=== PATIENT | male | born 1995 | race Caucasian/White ===

== ENCOUNTER 2025-02-16 23:48 | Emergency (ER) | payer SELFPAY ==
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
[2025-02-16 23:55] VITALS: BP 141/86; PULSE 90; RESP 18; TEMP 37.6; O2SAT 99; BMI 25.0
--- NOTE | 2025-02-17 00:20 | ED_ITS ---
HPI - Wound/Laceration General Time Seen by Provider: 00:20 Date Seen: 02/17/25 Chief Complaint: Laceration/Wound Stated Complaint: left knee injury Time Seen by Provider: 02/17/25 00:20 Source: patient and RN notes reviewed Mode of arrival: ambulatory Limitations: no limitations History of Present Illness HPI narrative: This 30-year-old male is coming in with concern of an infected wound. He has a laceration on his left knee that is healing by secondary intention. He did a visit with a friend who is a physician and he looked at the wound in did think it was infected, called me in doxycycline but it is after hours and he could not get the prescription. He is feeling sweaty, feeling low-grade fevers and increased pain along the knee. He is worried about this getting worse. He states he had septic shock last year. The events surrounding the septic shock were from testicular torsion that he did not go in for until late. His initial wound was evaluated on January 30, wound was 16 hours old when he went in. Patient was given 10 tablets of oxycodone at that visit and 7 days of Keflex at 500 mg 4 times a day. He did have an x-ray of his knee, did end up having a CT of this left knee without acute findings. He did get a Td updated. Related Data Allergies Allergy/AdvReac Type Severity Reaction Status Date / Time erythromycin base Allergy Severe Seizures Verified 02/16/25 23:59 Review of Systems Narrative: As per HPI. [facility] Medical History (Updated 02/17/25 @ 00:34 by Milly English MD) Testicular torsion ?N44.00 - Torsion of testis, unspecified (ICD-10) Social History Smoking Status: Never smoker Second hand tobacco smoke exposure: No How often do you have a drink containing alcohol: never AUDIT-C Alcohol total score: 0 Non-prescribed substance use: marijuana (any form) Exam Const: Vital Signs, click to edit/add: Vital Signs - 24 hr 02/16/25 23:55 Temperature 99.6 F Pulse Rate [Right Pulse Oximeter] 90 Respiratory Rate 18 Blood Pressure [Le ft Upper Arm] 141/86 H Pulse Oximetry 99 Oxygen Delivery Me thod Room Air Patient is alert, interactive, no apparent distress. Breathing easily on room air, speech normal. Lungs clear anteriorly. CV regular rate and rhythm, no murmur, normal S1-S2, no S3-S4. He has bandages over his left knee, this was removed. There is generalized soft tissue swelling but no effusion noted of the knee joint. He has a horizontally situated laceration that is through the skin, there is some mild warmth around the area, very mild pinkish change just right around the wound, no drainage noted. Skin overall feels generally warmer and there is some soft tissue induration noted but no fluctuance. Agree that there certainly could be some early infection here, temperature is noted to be 99.6. Documenting provider has reviewed patient's vital signs: yes Course Course ED Course: We will check baseline labs for this patient with CBC and C-reactive protein, he would prefer this. Have reviewed with him that we can get him doxycycline immediately out of [facility], do agree with him starting this now rather than waiting until morning. I did review with him that his septic shock from untreated testicular torsion really does not necessarily put him at increased risk for wound infection from this. We will still get the baseline labs so if he is worsening, there is something to compare to. Reevaluation(s) Time of Reevaluation #1: 01:40 Reevaluation #1: Reviewed with patient that his white blood count is normal, C-reactive protein normal. Labs are reassuring. Plan will be to discharge to home, he is already got his doxycycline out of [facility]. Vital Signs Vital signs: Initial Vital Signs Temperature 99.6 F 02/16/25 23:55 Temperature Source Temporal Artery Scan 02/16/25 23:55 Pulse Rate 90 02/16/25 23:55 Respiratory Rate 18 02/16/25 23:55 Blood Pressure 141/86 H 02/16/25 23:55 Blood Pressure Mean 104 02/16/25 23:55 Blood Pressure Position Sitting 02/16/25 23:55 Pulse Oximetry 99 02/16/25 23:55 Oxygen Delivery Method Room Air 02/16/25 23:55 Vital Signs Temperature 99.6 F 02/16/25 23:55 Pulse Rate 90 02/16/25 23:55 Respiratory Rate 18 02/16/25 23:55 Blood Pressure 141/86 H 02/16/25 23:55 Pulse Oximetry 99 02/16/25 23:55 Oxygen Delivery Method Room Air 02/16/25 23:55 Temperature 99.6 F 02/16/25 23:55 Pulse Rate 90 02/16/25 23:55 Respiratory Rate 18 02/16/25 23:55 Blood Pressure 141/86 H 02/16/25 23:55 Pulse Oximetry 99 02/16/25 23:55 Oxygen Delivery Method Room Air 02/16/25 23:55 Medications Administered Medications: Discontinued Medications Generic Name Dose Route Start Last Admin Trade Name Freq PRN Reason Stop Dose Admin Bacitracin Zinc 1 each 02/17/25 00:29 02/17/25 00:29 Bacitracin 0.9 Gm Packet TOPICAL 02/17/25 00:30 1 each ONCE ONE Administration MDM - Wound/Laceration Lab Data Attestation: I reviewed the patient's lab results. Labs: Lab Results 02/17/25 Range/Units 00:25 WBC 7.82 (4.50-11.00) K/uL RBC 4.23 L (4.30-5.90) m/uL Hgb 13.7 (13.5-17.5) gm/dL Hct 38.7 (37.0-53.0) % MCV 92 (80-100) fL MCH 32 (26-34) pg MCHC 35 (32-36) gm/dL RDW Coeff of Carlos 11.6 (11.5-15.5) % Plt Count 256 (140-440) K/uL Neut % (Auto) 70.7 (42.0-72.0) % Lymph % (Auto) 19.3 L (20-44) % [place]ham % (Auto) 7.4 (0.0-11.0) % Eos % (Auto) 2.0 (0.0-7.0) % Baso % (Auto) 0.5 (0.0-3.0) % Neut # (Auto) 5.52 (1.7-7.0) K/uL Lymph # (Auto) 1.50 (0.90-2.90) K/uL Ingham # (Auto) 0.60 (0.00-0.90) K/UL Eos # (Auto) 0.16 (0.00-0.50) K/uL Baso # (Auto) 0.04 (0.00-0.30) K/uL Abs Immat Gran (auto) 0.01 (0.00-0.30) K/uL Imm/Tot Granulo (auto) 0.1 % C-Reactive Protein < 0.5 L (0.5-1.0) mg/dL Discharge Plan Discharge Clinical Impression: Laceration, Infected wound Patient Disposition: Home, Self-Care Condition: Stable Instructions: Wound Infection (ED) Additional Instructions: Recommend keeping this wound clean with showering, gentle antibacterial soap use and bandaging with bacitracin. Start the doxycycline 100 mg and take twice a day for 10 days, provided from [employer]. Can use Tylenol and ibuprofen as needed for pain control. Continue to monitor this wound closely and if wound is increasingly more painful, developing more redness/swelling, fever pattern is worsening despite antibiotic use, developed purulent discharge, do recommend re- evaluation. Activity Level: Activity as Tolerated Stand Alone Forms: MyHealth Info Instructions
[2025-02-17] MEDS: BACITRACIN 0.9 GM PACKET 1 EACH TOPICAL (00:29)
[2025-02-17 00:43] LABS: Basophils Absolute Auto 0.04 K/uL (0.00-0.30); Basophils Percent Auto 0.5 % (0.0-3.0); Eosinophils Absolute Auto 0.16 K/uL (0.00-0.50); Hematocrit 38.7 % (37.0-53.0); Hemoglobin* 13.7 gm/dL (13.5-17.5); Immature Granulocytes Abs Auto 0.01 K/uL (0.00-0.30); Immature Granulocytes Pct Auto 0.1 %; Lymphocytes Percent Auto 19.3 % (20-44); Mean Corpuscular HGB Conc 35 gm/dL (32-36); Mean Corpuscular Hemoglobin 32 pg (26-34); Mean Corpuscular Volume 92 fL (80-100); Monocytes Percent Auto 7.4 % (0.0-11.0); Neutrophils Absolute Auto 5.52 K/uL (1.7-7.0); Neutrophils Percent Auto 70.7 % (42.0-72.0); Platelet Count* 256 K/uL (140-440); RDW Coefficient of Variation % 11.6 % (11.5-15.5); Red Blood Count 4.23 m/uL (4.30-5.90); White Blood Count* 7.82 K/uL (4.50-11.00)
--- OUTSIDE RECORDS SUMMARY | 2025-02-17 00:49 | XMS_ITS | Clinical Summary ---
Author Organization [facility] Address [address] [place] [id number] Care Team Providers Care Hot Knife Cutter Name Role Phone No Ref-Primary, Physician Primary Care Provider Allergies Active Allergy Reactions Criticality Noted Date Comments Erythromycin 08/13/2011 Pertussis Vaccine High 03/12/2011 Had seizure Trazodone Other (See Comments) Low 04/26/2019 Headache, nightmares, GI upset. Medications * This document contains information received from the source organization and may not represent a complete record from that organization. buPROPion (WELLBUTRIN XL) 150 MG 24 hr tabletIndicatio ns:Depression with anxiety Take 1 tablet (150 mg) by mouth daily 30 tablet 05/02/2019 Active oxyCODONE (ROXICODONE) 5 MG tablet Take 1 tablet (5 mg) by mouth every 6 hours as needed for severe pain 10 tablet 10/24/2023 Active cephALEXin (KEFLEX) 500 MG capsule Take 1 capsule (500 mg) by mouth 4 times daily for 7 days. 28 capsule 01/30/2025 02/07/20 25 Active Problems Problem Noted Date Diagnosed Date Suicidal ideations 04/25/2019 Ingestion of unknown drug, undetermined intent, sequela 09/17/2016 Acute alcoholic intoxication in alcoholism without complication 09/17/2016 Overdose 09/16/2016 Encounters Date Type Department Care Team Description 01/30/2025 1:18 PM CDT - 01/30/2025 3:07 PM CDT [facility] [address] [place] [address] Cari Guerin MD Knee laceration, left, initial encounter; Left knee pain Discharge Disposition: Home or Self Care 01/30/2025 Travel from Last 3 Months Immunizations Immunization Administration Dates Next Due TD,PF 7+ (Tenivac) 01/30/2025 Family History Medical History Relation Comments Anxiety Disorder Brother 1 Mental Illness Brother 1 Colon Cancer Father Coronary Artery Disease Father Diabetes Maternal Grandmother Anesthesia Reaction Mother Other Cancer Other Other Cancer Paternal Grandfather Relation Status Comments Brother 1 Alive Brother 2 Alive Brother 3 Alive Father Alive Maternal Grandfather Alive Maternal Grandmother Alive Mother Alive Other Paternal Grandfather Alive Paternal Grandmother Alive Sister 1 Alive Sister 2 Alive Social History Tobacco Use Types Packs/Day Years Used Date Smoking Tobacco: Never Smokeless Tobacco: Never Tobacco Cessation:Counseling Given: Yes Alcohol Use Standard Drinks/Week Comments Yes 0 (1 standard drink = 0.6 oz pur e alcohol) daily- unable to quantify Adolescent Education Answer Date Record ed Getting School Help Needed Not on file 10/24 Sex and Gender Information Value Date Recorded Sex Assigned at Not on file Legal Sex Male 5:03 AM AGING ROOM HAND Gender Identity Not on file Sexual Orientation Not on file Occupation Industry Job Start Date Job End Date unemployed Not on file Not on file Not on file Last Filed Vital Signs Vital Sign Reading Time Taken Comments Blood Pressure 160/84 01/30/2025 12:01 PM CDT Pulse 91 01/30/2025 12:01 PM CDT Temperature 36.1 C (97 F) 01/30/2025 12:01 PM CDT Respiratory Rate 16 01/30/2025 12:01 PM CDT Oxygen Saturation 99% 01/30/2025 12:01 PM CDT Inhaled Oxygen Concentration - - Weight 73.6 kg (162 lb 4.1 oz) 10/24/2023 4:21 P M AGING ROOM HAND Height 170.2 cm (5' 7) 10/24/2023 4:21 PM AGING ROOM HAND Body Mass Index 25.41 10/24/2023 4:21 PM AGING ROOM HAND Plan of Treatment Health Maintenance Due Date Last Done Comments ADVANCE CARE PLANNING 1993 ANNUAL REVIEW OF HM ORDERS 1993 YEARLY PREVENTIVE VISIT 01/23/1996 HIV SCREENING 01/23/2008 HEPATITIS C SCREENING 2011 HEPATITIS B VACCINE (1 of 3 - 19+ 3-dose series) 01/23/2012 PNEUMOCOCCAL VACCINE: PEDIATRICS (0 to 5 YEARS) AND AT-RISK PATIENTS (6 to 49 YEARS) (1 of 2 - PCV) 01/23/2012 COVID-19 VACCINE (1 - 2023-2 5 season) 2024 PHQ-2 (once per calendar year) 2024 DTAP/TDAP/TD VACCINE (2 - Tdap) 01/31/2025 01/30/2025, 01/17/2008 INFLUENZA VACCINE (Season Ended) 2025 ZOSTER VACCINE (1 of 2) 2043 MENINGITIS VACCINE Aged Out 04/10/2007 No longer eligible based on patient's age to complete this topic HPV VACCINE Aged Out No longer eligi ble based on patient's age to complete this topic Procedures Procedure Name Priority Date/Time Associated Diagnosis Comments XR KNEE LEFT 3 VIEWS STAT 01/30/2025 1:06 PM CDT from Last 3 Months Results * XR Knee Left 3 Views (01/30/2025 1:06 PM CDT) Anatomical Region Laterality Modality Thigh, Knee, Leg Left Computed Radiog pierre 01/30/2025 1:06 PM CDT Impressions 01/30/2025 1:09 PM CDT IMPRESSION: Normal joint spaces and alignment. No fracture or joint effusion. Narrative 01/30/2025 1:09 PM CDT EXAM: XR KNEE LEFT 3 VIEWS LOCATION: [facility] DATE: 01/30/2025 INDICATION: fall, traumatic knee pain COMPARISON: None. Procedure Note Kaycee Olivas MD - 01/30/2025 EXAM: XR KNEE LEFT 3 VIEWS LOCATION: [facility] DATE: 01/30/2025 INDICATION: fall, traumatic knee pain COMPARISON: None. IMPRESSION: Normal joint spaces and alignment. No fracture or jointeffusion. Levon Reina MD IMG DIAGNOSTIC IMAGING OR DERABLES Final Result from Last 3 Months Insurance none (Work) [place] [id number] [facility] Advance Directives For more information, please contact: [phone] * Full Code (Latest Code Status on File) Date Activated Date Inactivated Comments 04/25/2019 4:18 PM 05/01/2019 5:05 PM Question Answer Comments Code status determined by: Unable to dis cuss and no AD/POLST on file; continue PREVIOUSLY ORDERED code status * Full Code Date Activated Date Inactivated Comments 09/17/2016 1:06 PM 04/25/2019 11:57 AM * Full Code Date Activated Date Inactivated Comments 09/16/2016 1:22 PM 09/17/2016 1:06 PM * Full Code Date Activated Date Inactivated Comments 12/17/2011 3:49 AM 12/21/2011 4:41 PM * Full Code Date Activated Date Inactivated Comments 08/13/2011 7:03 PM 08/17/2011 7:51 PM Care Teams Hot Knife Cutter Relationship Specialty Start Date End Date No Ref-Primary, Physician PCP - General 10/24/23
--- OUTSIDE RECORDS SUMMARY | 2025-02-17 00:49 | XMS_ITS | Encounter Summary ---
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
[2025-02-17 00:54] LABS: C Reactive Protein* < 0.5 mg/dL (0.5-1.0)
[2025-02-17 00:57] LABS: Slide Review Reflex No
[2025-02-17 01:44] VITALS: BP 132/74; PULSE 81; RESP 18; TEMP 37.6; O2SAT 99
[2025-02-17 01:45] VITALS: BP 132/74; PULSE 81; RESP 18; TEMP 37.6
== END 2025-02-17 01:46 | disposition home or self-care (01) ==
LOC: ED 02-17 00:47
PROVIDERS: Emergency Provider Family Medicine
DX: S81.012A Laceration without foreign body, left knee, initial encounter (principal); L08.9 Local infection of the skin and subcutaneous tissue, unspecified
CPT/HCPCS: 36415; 85025; 86140; 99283; 99284; A9270